=== PATIENT | male | born 1955 | race Caucasian/White ===

== ENCOUNTER 2021-04-08 15:33 | Inpatient (IN) ==
[2021-04-08] MEDS ORDERED: PIPERACILLIN/TAZOBACTAM 3,375 MG in SODIUM CHLORIDE 0.9% 100 ML IV STA (16:04)
[2021-04-08] MEDS ORDERED: SODIUM CHLORIDE 0.9% 1,000 ML IV STA (16:04)
[2021-04-08] MEDS ORDERED: HYDROmorphone 2 MG/1 ML VIAL ONE (16:14)
[2021-04-08] MEDS ORDERED: ONDANSETRON 4 MG/2 ML VIAL ONE (16:14)
[2021-04-08] MEDS ORDERED: ONDANSETRON 4 MG/2 ML VIAL IV STA (16:41)
[2021-04-08] MEDS ORDERED: HYDROmorphone 2 MG/1 ML VIAL IV STA (16:41)
[2021-04-08 16:52] LABS: Bacteria,Urine Moderate /HPF (Few); Bilirubin,Urine Negative (Negative); Blood, Urine Small mg/dL (Negative); Glucose,Urine (UA) Negative (Negative); Ketones,Urine Negative (Negative); Mucus,Urine Occasional /LPF (Occasional); Nitrite,Urine Negative (Negative); Protein,Urine 100 MG/DL; RBC,Urine 19 /HPF (0-4); Urine Appearance CLOUDY (Clear); Urine Color Yellow (Yellow); Urine Specific Gravity 1.012 (1.001-1.035); Urine Urobilinogen < 2.0 EU/DL (0.2-1.0)
[2021-04-08 16:54] LABS: Basophils # 0.1 10*3/uL (0.0-0.2); Basophils % 0.6 % (0.0-0.8); Eosinophils # 0.1 10*3/uL (0.0-0.87); Eosinophils % 0.7 % (0.00-10.9); Hematocrit 43.3 VOL% (42.0-52.0); Hemoglobin 13.9 GM/DL (14.0-18.0); Immature Granulocytes % 1.2 %; Immature Granulocytes Absolute 0.12 #; Lymphocytes % 9.9 % (21.2-54.2); Mean Corpuscular HGB Conc 32.1 GM/DL (32-36); Mean Corpuscular Volume 86.9 FL (87-102); Mean Platelet Volume 12.7 FL (9.6-12.0); Monocytes % 5.5 % (1.7-12.7); Neutrophils % 82.1 % (38.7-73.9); Platelet Count 195 T/CUMM (130-400); Red Blood Count 4.98 MC/CUMM (3.8-5.5); White Blood Count 9.9 T/CUMM (4-12)
[2021-04-08 17:15] LABS: Albumin 3.4 G/DL (3.4-5.0); Bilirubin,Total 0.4 MG/DL (0.20-1.00); Calcium 9.5 MG/DL (8.5-10.1); Osmolality,Calculated 287.3 MOS/KG (273-304); Potassium 3.7 MMOL/L (3.5-5.1); Total Protein 8.1 G/DL (6.4-8.2)
[2021-04-08] MEDS ORDERED: DEXTROSE 50% 25 GM/50 ML VIAL IV PRN (17:50)
[2021-04-08] MEDS ORDERED: ALBUTEROL 2.5 MG/3 ML NEB RESP TX PRN (17:50)
[2021-04-08] MEDS ORDERED: ONDANSETRON 4 MG/2 ML VIAL IV PRN (17:50)
[2021-04-08] MEDS ORDERED: hydrALAZINE 20 MG/1 ML VIAL IV PRN (17:50)
[2021-04-08] MEDS ORDERED: GLUCAGON 1 MG VIAL IM PRN (17:50)
[2021-04-08] MEDS ORDERED: LACTULOSE 20 GM/30 ML UDCUP PO PRN (17:50)
[2021-04-08] MEDS ORDERED: ALUMINUM/MAGNES/SIMETH MAX STR 30 ML UDCUP PO PRN (17:50)
[2021-04-08] MEDS: LACTATED RINGERS 1,000 ML IV SCH (18:40)
[2021-04-08] MEDS: HYDROmorphone 2 MG/1 ML VIAL IV PRN ×2 (18:40→23:27)
[2021-04-08] MEDS: DOCUSATE SODIUM 100 MG CAPSULE PO SCH (21:03)
[2021-04-08] MEDS: ALPRAZolam 0.5 MG TABLET PO PRN (21:04)
[2021-04-08] MEDS: INSULIN REGULAR 100 UNIT/ML SUBCUT SCH (21:04)
[2021-04-09] MEDS: PIPERACILLIN/TAZOBACTAM 3,375 MG in SODIUM CHLORIDE 0.9% 100 ML IV SCH ×3 (00:09→16:24)
[2021-04-09 05:23] LABS: Basophils # 0.1 10*3/uL (0.0-0.2); Basophils % 0.6 % (0.0-0.8); Eosinophils # 0.3 10*3/uL (0.0-0.87); Eosinophils % 4.2 % (0.00-10.9); Hematocrit 38.7 VOL% (42.0-52.0); Hemoglobin 12.2 GM/DL (14.0-18.0); Immature Granulocytes % 0.4 %; Immature Granulocytes Absolute 0.03 #; Lymphocytes # 2.1 10*3/uL (1.4-4.0); Lymphocytes % 27.4 % (21.2-54.2); Mean Corpuscular HGB Conc 31.5 GM/DL (32-36); Mean Corpuscular Volume 89.6 FL (87-102); Mean Platelet Volume 12.4 FL (9.6-12.0); Monocytes % 8.5 % (1.7-12.7); Neutrophils % 58.9 % (38.7-73.9); Platelet Count 169 T/CUMM (130-400); Red Blood Count 4.32 MC/CUMM (3.8-5.5); Red Cell Distribution Width 14.9 % (9.3-17.3); White Blood Count 7.8 T/CUMM (4-12)
[2021-04-09 06:00] LABS: Calcium 8.7 MG/DL (8.5-10.1); Potassium 3.5 MMOL/L (3.5-5.1); Thyroid Stimulating Hormone 1.92 uIU/ml (0.358-3.74)
[2021-04-09] MEDS ORDERED: INFLUENZA VIRUS VACCINE 0.5 ML SYRINGE IM ONE (09:00)
[2021-04-09] MEDS ORDERED: PNEUMOCOCCAL VACCINE (13 VALENT) 0.5 ML SYRINGE IM ONE (09:00)
[2021-04-09] MEDS ORDERED: GLUCAGON 1 MG VIAL IM PRN (09:31)
[2021-04-09] MEDS ORDERED: DEXTROSE 50% 25 GM/50 ML VIAL IV PRN (09:31)
[2021-04-09] MEDS: DOCUSATE SODIUM 100 MG CAPSULE PO SCH ×2 (09:45→22:34)
[2021-04-09] MEDS: HYDROmorphone 2 MG/1 ML VIAL IV PRN ×2 (09:46→18:45)
[2021-04-09] MEDS: INSULIN REGULAR 100 UNIT/ML SUBCUT SCH ×4 (09:47→22:30)
[2021-04-09] MEDS: ALPRAZolam 0.5 MG TABLET PO PRN ×2 (09:56→18:39)
[2021-04-09] MEDS: PANTOPRAZOLE 40 MG TABLET PO SCH (13:41)
[2021-04-09] MEDS ORDERED: TUBERCULIN SKIN TEST 0.1 ML SYRINGE INTRADERM ONE (21:00)
[2021-04-10] MEDS: PIPERACILLIN/TAZOBACTAM 3,375 MG in SODIUM CHLORIDE 0.9% 100 ML IV SCH ×3 (01:29→16:26)
[2021-04-10 06:53] LABS: Basophils % 0.5 % (0.0-0.8); Eosinophils # 0.4 10*3/uL (0.0-0.87); Eosinophils % 4.6 % (0.00-10.9); Hematocrit 36.7 VOL% (42.0-52.0); Hemoglobin 11.2 GM/DL (14.0-18.0); Immature Granulocytes % 0.4 %; Immature Granulocytes Absolute 0.03 #; Lymphocytes # 2.1 10*3/uL (1.4-4.0); Lymphocytes % 27.7 % (21.2-54.2); Mean Corpuscular HGB Conc 30.5 GM/DL (32-36); Mean Platelet Volume 12.7 FL (9.6-12.0); Monocytes % 8.4 % (1.7-12.7); Neutrophils % 58.4 % (38.7-73.9); Platelet Count 148 T/CUMM (130-400); Red Blood Count 4.08 MC/CUMM (3.8-5.5); White Blood Count 7.7 T/CUMM (4-12)
[2021-04-10 07:08] LABS: Calcium 8.7 MG/DL (8.5-10.1); Potassium 3.8 MMOL/L (3.5-5.1)
[2021-04-10] MEDS: HYDROmorphone 2 MG/1 ML VIAL IV PRN ×5 (07:58→12:00)
[2021-04-10] MEDS ORDERED: fentaNYL 100 MCG/2 ML VIAL ONE ×2 (09:25→10:32)
[2021-04-10] MEDS ORDERED: MIDAZOLAM 2 MG/2 ML VIAL ONE (09:35)
[2021-04-10] MEDS ORDERED: LIDOCAINE 2% 5 ML VIAL ONE (10:03)
[2021-04-10] MEDS ORDERED: ONDANSETRON 4 MG/2 ML VIAL ONE (10:03)
[2021-04-10] MEDS ORDERED: ROCURONIUM 50 MG/5 ML VIAL IV ONE (10:03)
[2021-04-10] MEDS ORDERED: propofoL 200 MG/20 ML VIAL IV ONE (10:03)
[2021-04-10] MEDS ORDERED: SEVOFLURANE 1 UNIT/15 MINUTE INH ONE ×2 (10:03→11:01)
[2021-04-10] MEDS: LACTATED RINGERS 1,000 ML IV SCH ×5 (10:11→22:29)
[2021-04-10] MEDS: DOCUSATE SODIUM 100 MG CAPSULE PO SCH ×2 (10:13→20:32)
[2021-04-10] MEDS: PANTOPRAZOLE 40 MG TABLET PO SCH (10:13)
[2021-04-10] MEDS: INSULIN REGULAR 100 UNIT/ML SUBCUT SCH ×4 (10:14→20:35)
[2021-04-10] MEDS: ASPIRIN EC 81 MG TABLET PO SCH (10:15)
[2021-04-10] MEDS ORDERED: GLYCOPYRROLATE 0.4 MG/2 ML VIAL ONE (10:32)
[2021-04-10] MEDS ORDERED: DEXTROSE 50% 25 GM/50 ML VIAL IV PRN (10:42)
[2021-04-10] MEDS ORDERED: GLUCAGON 1 MG VIAL IM PRN (10:42)
[2021-04-10] MEDS ORDERED: NALOXONE 0.4 MG/ML VIAL IV PRN (10:43)
[2021-04-10] MEDS ORDERED: HYDROmorphone 2 MG/1 ML VIAL ONE (10:59)
[2021-04-10] MEDS ORDERED: LABETALOL 100 MG/20 ML VIAL IV ONE (11:00)
[2021-04-10] MEDS ORDERED: ONDANSETRON 4 MG/2 ML VIAL IV PRN (11:08)
[2021-04-10] MEDS ORDERED: LABETALOL 20 MG/4 ML SYRINGE IV ONE (11:09)
[2021-04-10] MEDS: HYDROmorphone PCA 30 MG/30 ML SYRINGE IV SCH (12:03)
[2021-04-10] MEDS: ALPRAZolam 0.5 MG TABLET PO PRN ×2 (14:05→20:32)
[2021-04-11] MEDS: PIPERACILLIN/TAZOBACTAM 3,375 MG in SODIUM CHLORIDE 0.9% 100 ML IV SCH ×3 (00:11→19:39)
[2021-04-11 04:52] LABS: Basophils % 0.4 % (0.0-0.8); Eosinophils # 0.4 10*3/uL (0.0-0.87); Eosinophils % 4.7 % (0.00-10.9); Hematocrit 34.4 VOL% (42.0-52.0); Hemoglobin 10.6 GM/DL (14.0-18.0); Immature Granulocytes % 0.4 %; Immature Granulocytes Absolute 0.03 #; Lymphocytes # 1.7 10*3/uL (1.4-4.0); Lymphocytes % 20.7 % (21.2-54.2); Mean Corpuscular HGB Conc 30.8 GM/DL (32-36); Mean Corpuscular Volume 88.9 FL (87-102); Monocytes % 9.7 % (1.7-12.7); Neutrophils % 64.1 % (38.7-73.9); Platelet Count 143 T/CUMM (130-400); Red Blood Count 3.87 MC/CUMM (3.8-5.5); Red Cell Distribution Width 14.9 % (9.3-17.3); White Blood Count 8.1 T/CUMM (4-12)
[2021-04-11 05:07] LABS: Calcium 8.7 MG/DL (8.5-10.1); Osmolality,Calculated 283.1 MOS/KG (273-304); Potassium 3.1 MMOL/L (3.5-5.1)
[2021-04-11] MEDS: POTASSIUM CHLORIDE 20 MEQ TABLET PO PRN ×4 (05:37→15:28)
[2021-04-11] MEDS: LACTATED RINGERS 1,000 ML IV SCH ×3 (05:48→12:55)
[2021-04-11] MEDS ORDERED: KETOROLAC 30 MG/1 ML VIAL IV ONE (09:39)
[2021-04-11] MEDS ORDERED: traMADol 50 MG TABLET PO PRN (09:40)
[2021-04-11] MEDS: ALPRAZolam 0.5 MG TABLET PO PRN ×2 (10:06→21:27)
[2021-04-11] MEDS: PANTOPRAZOLE 40 MG TABLET PO SCH (10:06)
[2021-04-11] MEDS: DOCUSATE SODIUM 100 MG CAPSULE PO SCH ×2 (10:06→21:27)
[2021-04-11] MEDS: ASPIRIN EC 81 MG TABLET PO SCH ×2 (10:08→11:04)
[2021-04-11] MEDS: INSULIN REGULAR 100 UNIT/ML SUBCUT SCH ×4 (10:09→21:28)
[2021-04-11] MEDS: HYDROmorphone PCA 30 MG/30 ML SYRINGE IV SCH (12:18)
[2021-04-11] MEDS: KETOROLAC 10 MG TABLET PO SCH ×2 (12:57→17:40)
[2021-04-12] MEDS: KETOROLAC 10 MG TABLET PO SCH ×4 (00:14→17:27)
[2021-04-12] MEDS: PIPERACILLIN/TAZOBACTAM 3,375 MG in SODIUM CHLORIDE 0.9% 100 ML IV SCH ×3 (03:05→21:06)
[2021-04-12 05:26] LABS: Basophils % 0.5 % (0.0-0.8); Eosinophils # 0.7 10*3/uL (0.0-0.87); Eosinophils % 10.7 % (0.00-10.9); Hematocrit 33.3 VOL% (42.0-52.0); Hemoglobin 9.8 GM/DL (14.0-18.0); Immature Granulocytes % 0.5 %; Immature Granulocytes Absolute 0.03 #; Lymphocytes # 1.6 10*3/uL (1.4-4.0); Lymphocytes % 26.3 % (21.2-54.2); Mean Corpuscular HGB Conc 29.4 GM/DL (32-36); Mean Corpuscular Volume 91.5 FL (87-102); Mean Platelet Volume 12.7 FL (9.6-12.0); Monocytes % 10.7 % (1.7-12.7); Neutrophils % 51.3 % (38.7-73.9); Platelet Count 127 T/CUMM (130-400); Red Blood Count 3.64 MC/CUMM (3.8-5.5); Red Cell Distribution Width 14.8 % (9.3-17.3); White Blood Count 6.2 T/CUMM (4-12)
[2021-04-12 05:41] LABS: Calcium 8.4 MG/DL (8.5-10.1)
[2021-04-12 05:56] LABS: Potassium 3.8 MMOL/L (3.5-5.1)
[2021-04-12] MEDS: amLODIPine 10 MG TABLET PO SCH (09:51)
[2021-04-12] MEDS: ALPRAZolam 0.5 MG TABLET PO PRN ×2 (09:51→18:33)
[2021-04-12] MEDS: DOCUSATE SODIUM 100 MG CAPSULE PO SCH ×2 (09:51→21:08)
[2021-04-12] MEDS: ASPIRIN EC 81 MG TABLET PO SCH (09:51)
[2021-04-12] MEDS: PANTOPRAZOLE 40 MG TABLET PO SCH (09:51)
[2021-04-12] MEDS: INSULIN REGULAR 100 UNIT/ML SUBCUT SCH ×4 (10:54→21:12)
[2021-04-12] MEDS ORDERED: VANCOMYCIN (NICU) 1,000 MG in SYRINGE 1 EACH IV SCH (11:30)
[2021-04-12] MEDS: LACTATED RINGERS 1,000 ML IV SCH (11:45)
[2021-04-12] MEDS: HYDROmorphone PCA 30 MG/30 ML SYRINGE IV SCH (12:31)
[2021-04-12] MEDS: VANCOMYCIN INJ 1,750 MG in SODIUM CHLORIDE 0.9% 500 ML IV SCH (17:27)
[2021-04-13] MEDS: KETOROLAC 10 MG TABLET PO SCH ×4 (00:17→17:57)
[2021-04-13] MEDS: VANCOMYCIN INJ 1,750 MG in SODIUM CHLORIDE 0.9% 500 ML IV SCH ×2 (01:20→15:19)
[2021-04-13] MEDS: PIPERACILLIN/TAZOBACTAM 3,375 MG in SODIUM CHLORIDE 0.9% 100 ML IV SCH ×3 (05:34→20:37)
[2021-04-13 06:51] LABS: Basophils % 0.6 % (0.0-0.8); Eosinophils # 0.7 10*3/uL (0.0-0.87); Eosinophils % 13.1 % (0.00-10.9); Hematocrit 32.8 VOL% (42.0-52.0); Immature Granulocytes % 0.4 %; Immature Granulocytes Absolute 0.02 #; Lymphocytes # 1.6 10*3/uL (1.4-4.0); Lymphocytes % 29.4 % (21.2-54.2); Mean Corpuscular HGB Conc 30.5 GM/DL (32-36); Mean Corpuscular Volume 90.1 FL (87-102); Mean Platelet Volume 12.8 FL (9.6-12.0); Monocytes % 8.5 % (1.7-12.7); Platelet Count 148 T/CUMM (130-400); Red Blood Count 3.64 MC/CUMM (3.8-5.5); Red Cell Distribution Width 14.6 % (9.3-17.3); White Blood Count 5.4 T/CUMM (4-12)
[2021-04-13 07:20] LABS: Eosinophils 14 % (0-10); Lymphocytes 24 % (20-55); Platelet Estimate Adequate; Segmented Neutrophils 52 % (50-85); Total Cells Counted 100
[2021-04-13 07:24] LABS: Calcium 8.2 MG/DL (8.5-10.1); Osmolality,Calculated 288.8 MOS/KG (273-304); Potassium 3.7 MMOL/L (3.5-5.1)
[2021-04-13] MEDS: PANTOPRAZOLE 40 MG TABLET PO SCH (08:30)
[2021-04-13] MEDS: ASPIRIN EC 81 MG TABLET PO SCH (08:30)
[2021-04-13] MEDS: amLODIPine 10 MG TABLET PO SCH (08:31)
[2021-04-13] MEDS: DOCUSATE SODIUM 100 MG CAPSULE PO SCH ×2 (08:31→20:38)
[2021-04-13] MEDS: ALPRAZolam 0.5 MG TABLET PO PRN ×2 (08:34→17:57)
[2021-04-13] MEDS: INSULIN REGULAR 100 UNIT/ML SUBCUT SCH ×4 (08:41→20:31)
[2021-04-13] MEDS: HYDROmorphone PCA 30 MG/30 ML SYRINGE IV SCH (14:47)
[2021-04-13] MEDS: oxyCODONE/ACETAMINOPHEN 5-325 MG TABLET PO PRN (15:20)
[2021-04-13] MEDS: LACTATED RINGERS 1,000 ML IV SCH (16:10)
[2021-04-13] MEDS: HYDROmorphone 2 MG/1 ML VIAL IV PRN ×2 (20:41→22:51)
[2021-04-14] MEDS: KETOROLAC 10 MG TABLET PO SCH ×5 (01:10→23:32)
[2021-04-14] MEDS: HYDROmorphone 2 MG/1 ML VIAL IV PRN ×7 (01:12→23:30)
[2021-04-14] MEDS: VANCOMYCIN INJ 1,750 MG in SODIUM CHLORIDE 0.9% 500 ML IV SCH (01:13)
[2021-04-14] MEDS: PIPERACILLIN/TAZOBACTAM 3,375 MG in SODIUM CHLORIDE 0.9% 100 ML IV SCH ×3 (04:22→20:48)
[2021-04-14] MEDS: oxyCODONE/ACETAMINOPHEN 5-325 MG TABLET PO PRN ×2 (05:36→14:56)
[2021-04-14 06:16] LABS: Basophils % 0.7 % (0.0-0.8); Eosinophils # 0.8 10*3/uL (0.0-0.87); Hematocrit 34.2 VOL% (42.0-52.0); Hemoglobin 10.2 GM/DL (14.0-18.0); Immature Granulocytes % 0.3 %; Immature Granulocytes Absolute 0.02 #; Lymphocytes # 1.5 10*3/uL (1.4-4.0); Lymphocytes % 25.9 % (21.2-54.2); Mean Corpuscular HGB Conc 29.8 GM/DL (32-36); Mean Corpuscular Volume 91.2 FL (87-102); Mean Platelet Volume 11.1 FL (9.6-12.0); Monocytes % 8.7 % (1.7-12.7); Neutrophils % 50.4 % (38.7-73.9); Platelet Count 143 T/CUMM (130-400); Red Blood Count 3.75 MC/CUMM (3.8-5.5); Red Cell Distribution Width 14.7 % (9.3-17.3); White Blood Count 5.9 T/CUMM (4-12)
[2021-04-14 06:39] LABS: Eosinophils 15 % (0-10); Hypochromasia Slight; Lymphocytes 35 % (20-55); Microcytosis Slight; Platelet Estimate Adequate; Segmented Neutrophils 48 % (50-85); Total Cells Counted 100
[2021-04-14 06:48] LABS: Calcium 8.4 MG/DL (8.5-10.1); Osmolality,Calculated 289.8 MOS/KG (273-304); Potassium 3.8 MMOL/L (3.5-5.1)
[2021-04-14] MEDS: INSULIN REGULAR 100 UNIT/ML SUBCUT SCH ×4 (07:45→20:38)
[2021-04-14] MEDS: ASPIRIN EC 81 MG TABLET PO SCH (08:04)
[2021-04-14] MEDS: amLODIPine 10 MG TABLET PO SCH (08:04)
[2021-04-14] MEDS: PANTOPRAZOLE 40 MG TABLET PO SCH (08:05)
[2021-04-14] MEDS: DOCUSATE SODIUM 100 MG CAPSULE PO SCH ×2 (08:05→20:48)
[2021-04-14] MEDS: ALPRAZolam 0.5 MG TABLET PO PRN ×2 (10:42→17:42)
[2021-04-14] MEDS: LACTATED RINGERS 1,000 ML IV SCH (14:36)
[2021-04-14] MEDS: MAGNESIUM OXIDE 400 MG TABLET PO SCH (20:48)
[2021-04-15] MEDS: HYDROmorphone 2 MG/1 ML VIAL IV PRN ×5 (05:08→17:38)
[2021-04-15] MEDS: PIPERACILLIN/TAZOBACTAM 3,375 MG in SODIUM CHLORIDE 0.9% 100 ML IV SCH (05:09)
[2021-04-15] MEDS: KETOROLAC 10 MG TABLET PO SCH ×3 (05:11→17:37)
[2021-04-15] MEDS: INSULIN REGULAR 100 UNIT/ML SUBCUT SCH ×4 (07:44→21:58)
[2021-04-15] MEDS: PANTOPRAZOLE 40 MG TABLET PO SCH (08:33)
[2021-04-15] MEDS: ASPIRIN EC 81 MG TABLET PO SCH (08:33)
[2021-04-15] MEDS: ALPRAZolam 0.5 MG TABLET PO PRN (08:34)
[2021-04-15] MEDS: DOCUSATE SODIUM 100 MG CAPSULE PO SCH ×2 (08:34→21:56)
[2021-04-15] MEDS: MAGNESIUM OXIDE 400 MG TABLET PO SCH ×2 (08:34→21:56)
[2021-04-15] MEDS: amLODIPine 10 MG TABLET PO SCH (08:34)
[2021-04-15] MEDS: oxyCODONE/ACETAMINOPHEN 5-325 MG TABLET PO PRN (09:42)
[2021-04-15] MEDS: LACTATED RINGERS 1,000 ML IV SCH (12:35)
[2021-04-15] MEDS: oxyCODONE ER 10 MG TABLET PO SCH ×2 (16:17→21:58)
[2021-04-16] MEDS: KETOROLAC 10 MG TABLET PO SCH ×2 (00:16→06:33)
[2021-04-16] MEDS: HYDROmorphone 2 MG/1 ML VIAL IV PRN ×3 (02:00→20:07)
[2021-04-16 05:30] LABS: Basophils % 0.4 % (0.0-0.8); Eosinophils # 0.7 10*3/uL (0.0-0.87); Hematocrit 35.1 VOL% (42.0-52.0); Hemoglobin 10.8 GM/DL (14.0-18.0); Immature Granulocytes % 0.6 %; Immature Granulocytes Absolute 0.05 #; Lymphocytes # 2.1 10*3/uL (1.4-4.0); Lymphocytes % 23.5 % (21.2-54.2); Mean Corpuscular HGB Conc 30.8 GM/DL (32-36); Mean Corpuscular Volume 88.2 FL (87-102); Mean Platelet Volume 10.8 FL (9.6-12.0); Monocytes % 7.6 % (1.7-12.7); Neutrophils % 59.9 % (38.7-73.9); Platelet Count 172 T/CUMM (130-400); Red Blood Count 3.98 MC/CUMM (3.8-5.5); Red Cell Distribution Width 14.7 % (9.3-17.3); White Blood Count 8.9 T/CUMM (4-12)
[2021-04-16] MEDS: MAGNESIUM OXIDE 400 MG TABLET PO SCH ×2 (09:08→21:38)
[2021-04-16] MEDS: DOCUSATE SODIUM 100 MG CAPSULE PO SCH ×2 (09:09→21:38)
[2021-04-16] MEDS: ASPIRIN EC 81 MG TABLET PO SCH (09:10)
[2021-04-16] MEDS: amLODIPine 10 MG TABLET PO SCH (09:14)
[2021-04-16] MEDS: PANTOPRAZOLE 40 MG TABLET PO SCH (09:15)
[2021-04-16] MEDS: oxyCODONE ER 20 MG TABLET PO SCH ×2 (09:15→21:39)
[2021-04-16] MEDS: INSULIN REGULAR 100 UNIT/ML SUBCUT SCH ×4 (09:17→21:36)
[2021-04-16] MEDS: LACTATED RINGERS 1,000 ML IV SCH (10:38)
[2021-04-16] MEDS ORDERED: TUBERCULIN SKIN TEST 0.1 ML SYRINGE INTRADERM ONE (15:00)
[2021-04-17 06:25] LABS: Basophils # 0.1 10*3/uL (0.0-0.2); Basophils % 0.7 % (0.0-0.8); Eosinophils # 0.3 10*3/uL (0.0-0.87); Eosinophils % 4.6 % (0.00-10.9); Hematocrit 36.1 VOL% (42.0-52.0); Hemoglobin 11.2 GM/DL (14.0-18.0); Immature Granulocytes % 0.3 %; Immature Granulocytes Absolute 0.02 #; Lymphocytes # 1.4 10*3/uL (1.4-4.0); Lymphocytes % 19.4 % (21.2-54.2); Mean Platelet Volume 11.8 FL (9.6-12.0); Monocytes % 8.9 % (1.7-12.7); Neutrophils % 66.1 % (38.7-73.9); Platelet Count 207 T/CUMM (130-400); Red Blood Count 4.15 MC/CUMM (3.8-5.5); Red Cell Distribution Width 14.7 % (9.3-17.3); White Blood Count 7.4 T/CUMM (4-12)
[2021-04-17] MEDS: INSULIN REGULAR 100 UNIT/ML SUBCUT SCH ×4 (08:14→22:34)
[2021-04-17] MEDS: PANTOPRAZOLE 40 MG TABLET PO SCH (09:05)
[2021-04-17] MEDS: MAGNESIUM OXIDE 400 MG TABLET PO SCH ×2 (09:06→22:33)
[2021-04-17] MEDS: oxyCODONE ER 20 MG TABLET PO SCH ×2 (09:07→22:33)
[2021-04-17] MEDS: amLODIPine 10 MG TABLET PO SCH (09:07)
[2021-04-17] MEDS: DOCUSATE SODIUM 100 MG CAPSULE PO SCH ×2 (09:07→22:32)
[2021-04-17] MEDS: ASPIRIN EC 81 MG TABLET PO SCH (09:07)
[2021-04-17] MEDS: HYDROmorphone 2 MG/1 ML VIAL IV PRN ×2 (12:15→18:38)
[2021-04-18 06:12] LABS: Basophils # 0.1 10*3/uL (0.0-0.2); Basophils % 0.8 % (0.0-0.8); Eosinophils # 0.5 10*3/uL (0.0-0.87); Eosinophils % 7.2 % (0.00-10.9); Hematocrit 35.9 VOL% (42.0-52.0); Hemoglobin 11.3 GM/DL (14.0-18.0); Immature Granulocytes % 0.6 %; Immature Granulocytes Absolute 0.04 #; Lymphocytes # 2.2 10*3/uL (1.4-4.0); Lymphocytes % 30.3 % (21.2-54.2); Mean Corpuscular HGB Conc 31.5 GM/DL (32-36); Mean Corpuscular Volume 86.9 FL (87-102); Mean Platelet Volume 10.9 FL (9.6-12.0); Monocytes % 9.9 % (1.7-12.7); Neutrophils % 51.2 % (38.7-73.9); Platelet Count 217 T/CUMM (130-400); Red Blood Count 4.13 MC/CUMM (3.8-5.5); Red Cell Distribution Width 14.7 % (9.3-17.3); White Blood Count 7.3 T/CUMM (4-12)
[2021-04-18 06:42] LABS: Calcium 9.3 MG/DL (8.5-10.1); Osmolality,Calculated 283.1 MOS/KG (273-304); Potassium 3.1 MMOL/L (3.5-5.1)
[2021-04-18] MEDS ORDERED: POTASSIUM CHLORIDE 20 MEQ TABLET PO ONE ×2 (08:10→10:00)
[2021-04-18] MEDS: INSULIN REGULAR 100 UNIT/ML SUBCUT SCH ×4 (09:25→21:18)
[2021-04-18] MEDS: ASPIRIN EC 81 MG TABLET PO SCH (09:26)
[2021-04-18] MEDS: PANTOPRAZOLE 40 MG TABLET PO SCH (09:26)
[2021-04-18] MEDS: oxyCODONE ER 20 MG TABLET PO SCH ×2 (09:26→21:19)
[2021-04-18] MEDS: DOCUSATE SODIUM 100 MG CAPSULE PO SCH ×2 (09:26→21:17)
[2021-04-18] MEDS: MAGNESIUM OXIDE 400 MG TABLET PO SCH ×2 (09:26→21:17)
[2021-04-18] MEDS: amLODIPine 10 MG TABLET PO SCH (09:26)
[2021-04-18] MEDS: POLYETHYLENE GLYCOL POWDER 17 GM PACK PO SCH (09:28)
[2021-04-18] MEDS: HYDROmorphone 2 MG/1 ML VIAL IV PRN ×2 (13:51→16:09)
[2021-04-19 06:39] LABS: Basophils # 0.1 10*3/uL (0.0-0.2); Basophils % 1.3 % (0.0-0.8); Eosinophils # 0.5 10*3/uL (0.0-0.87); Eosinophils % 7.5 % (0.00-10.9); Hematocrit 36.7 VOL% (42.0-52.0); Hemoglobin 11.4 GM/DL (14.0-18.0); Immature Granulocytes % 0.3 %; Immature Granulocytes Absolute 0.02 #; Lymphocytes % 28.9 % (21.2-54.2); Mean Corpuscular HGB Conc 31.1 GM/DL (32-36); Mean Platelet Volume 10.8 FL (9.6-12.0); Monocytes % 9.4 % (1.7-12.7); Neutrophils % 52.6 % (38.7-73.9); Platelet Count 223 T/CUMM (130-400); Red Blood Count 4.22 MC/CUMM (3.8-5.5); Red Cell Distribution Width 14.6 % (9.3-17.3)
[2021-04-19 06:55] LABS: Calcium 9.3 MG/DL (8.5-10.1); Osmolality,Calculated 283.3 MOS/KG (273-304); Potassium 3.9 MMOL/L (3.5-5.1)
[2021-04-19] MEDS: INSULIN REGULAR 100 UNIT/ML SUBCUT SCH ×4 (07:54→20:14)
[2021-04-19] MEDS: POLYETHYLENE GLYCOL POWDER 17 GM PACK PO SCH (09:31)
[2021-04-19] MEDS: DOCUSATE SODIUM 100 MG CAPSULE PO SCH ×2 (09:31→20:17)
[2021-04-19] MEDS: BISACODYL 5 MG TABLET PO SCH (09:32)
[2021-04-19] MEDS: ASPIRIN EC 81 MG TABLET PO SCH (09:32)
[2021-04-19] MEDS: amLODIPine 10 MG TABLET PO SCH (09:32)
[2021-04-19] MEDS: MAGNESIUM OXIDE 400 MG TABLET PO SCH ×2 (09:32→20:16)
[2021-04-19] MEDS: oxyCODONE ER 20 MG TABLET PO SCH ×2 (09:32→20:18)
[2021-04-19] MEDS: PANTOPRAZOLE 40 MG TABLET PO SCH (09:32)
[2021-04-19] MEDS: HYDROmorphone 2 MG/1 ML VIAL IV PRN (17:26)
[2021-04-20 05:58] LABS: Basophils # 0.1 10*3/uL (0.0-0.2); Eosinophils # 0.5 10*3/uL (0.0-0.87); Hematocrit 35.2 VOL% (42.0-52.0); Immature Granulocytes % 0.7 %; Immature Granulocytes Absolute 0.05 #; Lymphocytes # 1.9 10*3/uL (1.4-4.0); Lymphocytes % 26.6 % (21.2-54.2); Mean Corpuscular HGB Conc 31.3 GM/DL (32-36); Mean Corpuscular Volume 88.2 FL (87-102); Mean Platelet Volume 10.3 FL (9.6-12.0); Neutrophils % 53.7 % (38.7-73.9); Platelet Count 211 T/CUMM (130-400); Red Blood Count 3.99 MC/CUMM (3.8-5.5); Red Cell Distribution Width 14.6 % (9.3-17.3)
[2021-04-20 06:26] LABS: Calcium 8.9 MG/DL (8.5-10.1); Osmolality,Calculated 286.1 MOS/KG (273-304); Potassium 3.7 MMOL/L (3.5-5.1)
[2021-04-20] MEDS: INSULIN REGULAR 100 UNIT/ML SUBCUT SCH ×2 (08:06→11:39)
[2021-04-20] MEDS: DOCUSATE SODIUM 100 MG CAPSULE PO SCH (08:33)
[2021-04-20] MEDS: ASPIRIN EC 81 MG TABLET PO SCH (08:33)
[2021-04-20] MEDS: PANTOPRAZOLE 40 MG TABLET PO SCH (08:33)
[2021-04-20] MEDS: MAGNESIUM OXIDE 400 MG TABLET PO SCH (08:33)
[2021-04-20] MEDS: oxyCODONE ER 20 MG TABLET PO SCH (08:34)
[2021-04-20] MEDS: amLODIPine 10 MG TABLET PO SCH (08:34)
[2021-04-20] MEDS: BISACODYL 5 MG TABLET PO SCH (08:35)
[2021-04-20] MEDS: POLYETHYLENE GLYCOL POWDER 17 GM PACK PO SCH (08:35)
[2021-04-20] MEDS: HYDROmorphone 2 MG/1 ML VIAL IV PRN (11:36)
[2021-04-20 11:47] VITALS: BP 121/97
== END 2021-04-20 13:10 | DRG 240 ==
LOC: EDUNIT# → EDBD → N.ED 15:33 → SUATTDRO 17:34 → N.EDINP 17:34 → N.5E 04-09 00:47
PROVIDERS: ADMIT Internal Medicine; ATTEND Internal Medicine